=== PATIENT | male | born 1990 | race Caucasian/White ===

== ENCOUNTER 2018-06-20 14:31 | Emergency (ER) | payer OTHER ==
[~2018-06-20] VITALS: Ht 177.8 cm; Wt 84.0 kg
[~2018-06-20 14:31] MED LIST: ALBU18HF INHALATION; ALBUTEROL INH; CARB15DR50 BOTH EARS; IPRA14.76
[2018-06-20 14:38] VITALS: BP 168/57; PULSE 96; RESP 16; Ht 177.8 cm; Wt 84.0 kg
[2018-06-20] MEDS ORDERED: IPRATROPIUM (NEB) 0.5 MG/2.5 ML AMP NEB STA (15:39)
[2018-06-20] MEDS ORDERED: DEXAMETHASONE (1 MG/ML PO SYG) PO STA (15:39)
[2018-06-20] MEDS ORDERED: ALBUTEROL 0.083% (NEB) 2.5 MG/3 ML AMP NEB STA (15:39)
--- NOTE | 2018-06-20 15:41 | ERD ---
ER Documentation Chief Complaint Chief Complaint pt bib self with c/o feeling sob "asthma for a few days " HPI 28-year-old male, with history of asthma, presents the emergency department, c omplaining of 3 days with worsening of cough and wheezing. He has been using albuterol inhaler every 4 hours with mild improvement of the symptoms. He denies fevers, no chills, no chest pain, refers mild shortness of breath on exertion. ROS All systems reviewed and are negative except as per history of present illness. Medications Home Meds Active Scripts Prednisone* (Prednisone*) 20 Mg Tab, 40 MG PO DAILY for 4 Days, TAB Prov:GLEN MELGAR MD 06/20/18 Albuterol Sulfate* (Proair HFA*) 8.5 Gm Hfa.aer.ad, 2 PUFF INH Q4 PRN for COUGH, #1 INHALER Prov:GLEN MELGAR MD 06/20/18 Carbamide Peroxide* (Debrox*) 6.5% - 15 Ml Drops, 10 DROP BOTH EARS BID for ear wax, #1 BOTTLE Prov:JUANA MADRIGAL DO 06/03/18 Albuterol Sulfate* (Ventolin HFA*) 18 Gm Hfa.aer.ad, 2 PUFF INHALATION Q4H PRN for SHORTNESS OF BREATH, #3 INHALER Prov:JUANA MADRIGAL DO 06/03/18 Reported Medications Albuterol/Ipratropium (Combivent) 14.7 Gm Inha 10/14/09 [Albuterol Inh] No Conflict Check 08/20/09 Allergies Allergies: Coded Allergies: No Known Allergies (Verified Allergy, Mild, 10/14/09) PMhx/Soc Medical and Surgical Hx: pt denies Surgical Hx History of Surgery: No Anesthesia Reaction: No Hx Neurological Disorder: No Hx Respiratory Disorders: Yes (ASTHMA) Hx Cardiac Disorders: No Hx Psychiatric Problems: No Hx Miscellaneous Medical Probl: No Hx Alcohol Use: Yes (SOCIAL) Hx Substance Use: No Hx Tobacco Use: Yes Smoking Status: Former smoker FmHx Family History: No diabetes, No coronary disease Physical Exam Vitals Vital Signs Date Temp Pulse Resp B/P (MAP) Pulse Ox O2 O2 Flow FiO2 Time Delivery Rate 06/20/18 98 Room Air 16:51 06/20/18 96 19 96 21 15:52 06/20/18 97.4 96 16 168/57 97 14:38 (94) Physical Exam Const: No acute distress Head: Atraumatic Eyes: Normal Conjunctiva ENT: Normal External Ears, Nose and Mouth. Neck: Full range of motion. No meningismus. Resp: Diffuse rhonchi with expiratory wheezing to auscultation bilaterally Cardio: Regular rate and rhythm, no murmurs Abd: Soft, non tender, non distended. Normal bowel sounds Skin: No petechiae or rashes Back: No midline or flank tenderness Ext: No cyanosis, or edema Neur: Awake and alert Psych: Normal Mood and Affect Results 24 hrs Current Medications Medications Dose Sig/Marilou Start Time Status Last (Trade) Ordered Route PRN Stop Time Admin Dose Reason Admin Albuterol 5 mg ONCE STAT 06/20/18 DC 06/20/18 (Proventil NEB 15:39 15:51 0.083% (Neb)) 06/20/18 15:47 Ipratropium 0.5 mg ONCE STAT 06/20/18 DC 06/20/18 [place] NEB 15:39 15:52 (Atrovent 06/20/18 15:47 0.02% (Neb)) 10 mg ONCE STAT 06/20/18 UNV Dexamethasone PO 15:39 (Decadron 06/20/18 15:40 Intensol Liquid) 10 mg NOW PO 06/20/18 DC 06/20/18 Dexamethasone 16:00 16:02 (Decadron) 06/20/18 16:01 Procedures/MDM At the time of discharge, vital signs stable, no respiratory distress. Differential diagnosis include but not limited to: Respiratory infection bacterial/viral/fungal. Asthma/COPD, pneumonitis, allergies, GERD. Less likely foreign body aspiration, cardiac related, aspiration pneumonia, malignancy. Physical examination and clinical presentation consistent most likely with acute asthma exacerbation. During the ED course the patient remained stable, received a nebulized augustin tment and steroids in the ED presenting overall improvement of the symptoms, no new complaints. Clinical impression discussed with the patient who agrees with management. The patient is stable to be treated outpatient and will be discharged home. Some side effects of prescribed medications (headache, rash, nausea, vomiting, diarrhea, drowsiness, habituation, bleeding, hypertension, interactions with other medications) were reviewed. The patient was instructed to follow up with the primary care provider in the next 48h. If symptoms persist, worsen or new symptoms develop, then patient should return to the ED immediately. Disclaimer: Inadvertent spelling and grammatical errors are likely due to EHR/dictation software use and do not reflect on the overall quality of patient care. Also, please note that the electronic time recorded on this note does not necessarily reflect the actual time of the patient encounter. Departure Diagnosis: Primary Impression: Asthma with acute exacerbation Condition: Stable Additional Instructions: Thank you very much for allowing us to participate in your care. Your health and safety is our top priority at [facility]. Call your primary care doctor TOMORROW for an appointment during the next 2-4 days and bring all the information and medications prescribed. Have prescriptions filled and follow precisely the directions on the label. If the symptoms get worse and your provider is unavailable, return to the Emergency Department immediately. GLEN MELGAR MD Jun 20, 2018 15:41
[2018-06-20] MEDS ORDERED: DEXAMETHASONE 4 MG TAB PO SCH (16:00)
[2018-06-20] MEDS ORDERED: PRED20TA PO (16:43)
[2018-06-20] MEDS ORDERED: ALBU8.5H8 INH (16:43)
== END 2018-06-20 16:52 | disposition home or self-care (01) ==
LOC: FTE 14:31
DX: J45.901 Unspecified asthma with (acute) exacerbation (principal); Z87.891 Personal history of nicotine dependence
CPT/HCPCS: 94664; Z7502; Z7610

== ENCOUNTER 2018-09-08 11:38 | Emergency (ER) | payer OTHER ==
[2018-06-20 14:38] VITALS: Wt 77.0 kg
[~2018-09-08] VITALS: Wt 77.0 kg
[~2018-09-08 11:38] MED LIST changes: +ALBU8.5H8 INH; +PRED20TA PO
[2018-09-08 11:52] VITALS: BP 154/64; PULSE 64; RESP 18
[2018-09-08] MEDS ORDERED: IPRATROPIUM (NEB) 0.5 MG/2.5 ML AMP NEB STA (12:18)
[2018-09-08] MEDS ORDERED: predniSONE 20 MG TAB PO STA (12:18)
[2018-09-08] MEDS ORDERED: ALBUTEROL 0.083% (NEB) 2.5 MG/3 ML AMP NEB STA (12:18)
--- NOTE | 2018-09-08 12:20 | ERD ---
ER Documentation Chief Complaint Chief Complaint REFILL OF ASTHMA MEDS HPI 28-year-old male, with history of asthma, controlled with albuterol MDI and albuterol nebulizer at home, presents to the emergency department, complaining of 1 week with upper respiratory symptoms including cough, congestion and intermittent wheezing. He is requesting a refill for his medications. He denies fever, no chills. ROS All systems reviewed and are negative except as per history of present illness. Medications Home Meds Active Scripts Prednisone* (Prednisone*) 20 Mg Tab, 40 MG PO DAILY for 4 Days, TAB Prov:GLEN MELGAR MD 09/08/18 Albuterol Sulfate* (Ventolin HFA*) 18 Gm Hfa.aer.ad, 2 PUFF INHALATION Q4H, #1 INHALER Prov:GLEN MELGAR MD 09/08/18 Albuterol Sulfate* (Albuterol Sulfate* Neb) 0.083%-3 Ml Neb, 2.5 MG NEB Q4 PRN for SHORTNESS OF BREATH, #30 EA Prov:GLEN MELGAR MD 09/08/18 Prednisone* (Prednisone*) 20 Mg Tab, 40 MG PO DAILY for 4 Days, TAB Prov:GLEN MELGAR MD 06/20/18 Albuterol Sulfate* (Proair HFA*) 8.5 Gm Hfa.aer.ad, 2 PUFF INH Q4 PRN for COUGH, #1 INHALER Prov:GLEN MELGAR MD 06/20/18 Carbamide Peroxide* (Debrox*) 6.5% - 15 Ml Drops, 10 DROP BOTH EARS BID for ear wax, #1 BOTTLE Prov:JUANA MADRIGAL DO 06/03/18 Albuterol Sulfate* (Ventolin HFA*) 18 Gm Hfa.aer.ad, 2 PUFF INHALATION Q4H PRN for SHORTNESS OF BREATH, #3 INHALER Prov:JUANA MADRIGAL DO 06/03/18 Reported Medications Albuterol/Ipratropium (Combivent) 14.7 Gm Inha 10/14/09 [Albuterol Inh] No Conflict Check 08/20/09 Allergies Allergies: Coded Allergies: No Known Allergies (Verified Allergy, Mild, 10/14/09) PMhx/Soc History of Surgery: No Anesthesia Reaction: No Hx Neurological Disorder: No Hx Respiratory Disorders: Yes (ASTHMA) Hx Cardiac Disorders: No Hx Psychiatric Problems: No Hx Miscellaneous Medical Probl: No Hx Alcohol Use: Yes (SOCIAL) Hx Substance Use: No Hx Tobacco Use: Yes FmHx Family History: No diabetes, No coronary disease Physical Exam Vitals Vital Signs Date Temp Pulse Resp B/P (MAP) Pulse Ox O2 O2 Flow FiO2 Time Delivery Rate 09/08/18 80 20 96 21 12:33 09/08/18 98.1 64 18 154/64 99 11:52 (94) Physical Exam Patient alert, oriented, mild respiratory distress with cough. HEAD: Normocephalic, atraumatic. EYES: PERRLA, EOMI, Sclera and conjunctiva appear normal. NOSE: clear rhinorrhea . EARS: Canals clear, tympanic membranes WNL. MOUTH: normal lips and tongue, no oral lesions. THROAT: Erythema of the oropharynx, no tonsillar exudates. NECK: Supple, No lymphadenopathy. Full ROM without pain or tenderness. HEART: RRR, no rubs, murmurs, clicks or gallops. LUNGS: Bilateral inspiratory and expiratory wheezing to auscultation. ABDOMEN: Soft, non-tender without masses or hepatosplenomegaly. EXTREMITIES: No edema bilaterally. BACK: Full ROM, no deformity, normal back exam NEURO: Cranial nerves grossly intact, no motor or sensory deficit SKIN: No rashes, no petechia Results 24 hrs Current Medications Medications Dose Sig/Marilou Start Time Status Last (Trade) Ordered Route PRN Stop Time Admin Dose Reason Admin Albuterol 5 mg ONCE STAT 09/08/18 DC 09/08/18 (Proventil NEB 12:18 09/08/18 12:29 0.083% (Neb)) 12:19 Ipratropium 0.5 mg ONCE STAT 09/08/18 DC 09/08/18 [place] NEB 12:18 09/08/18 12:29 (Atrovent 12:19 0.02% (Neb)) Prednisone 60 mg ONCE STAT 09/08/18 DC 09/08/18 (Prednisone) PO 12:18 09/08/18 12:29 12:19 Procedures/MDM At the time of discharge, vital signs stable, no respiratory distress. Differential diagnosis include but not limited to: Respiratory infection bacterial/viral/fungal. Asthma/COPD, pneumonitis, allergies, GERD. Less likely foreign body aspiration, cardiac related, aspiration pneumonia, malignancy. Physical examination and clinical presentation consistent most likely with acute asthma exacerbation. During the ED course the patient remained stable, received a nebulized treatment and steroids in the ED presenting overall improvement of the symptoms, no new complaints. Clinical impression discussed with the patient who agrees with management. The patient is stable to be treated outpatient and will be discharged home. Some side effects of prescribed medications (headache, rash, nausea, vomiting, diarrhea, drowsiness, habituation, bleeding, hypertension, interactions with other medications) were reviewed. The patient was instructed to follow up with the primary care provider in the next 48h. If symptoms persist, worsen or new symptoms develop, then patient should return to the ED immediately. Disclaimer: Inadvertent spelling and grammatical errors are likely due to EHR/dictation software use and do not reflect on the overall quality of patient care. Also, please note that the electronic time recorded on this note does not necessarily reflect the actual time of the patient encounter. Departure Diagnosis: Primary Impression: Asthma exacerbation Additional Impression: Encounter for medication refill Condition: Stable Additional Instructions: Thank you very much for allowing us to participate in your care. Your health and safety is our top priority at [facility]. The evaluation in the emergency department has been done to rule out an acute emergency, therefore, chronic conditions like malignancy or other diseases have not been evaluated; therefore, you need to follow up with a primary care provider in the next 48h. If symptoms persist, worsen or new symptoms develop, then patient should return to the ED immediately. Call your primary care doctor TOMORROW for an appointment during the next 2-4 days and bring all the information provided. Have prescriptions filled and follow precisely the directions on the label. If the symptoms get worse and your provider is unavailable, return to the Emergency Department immediately. GLEN MELGAR MD September 08, 2018 12:20
[2018-09-08] MEDS ORDERED: ALBU18HF INHALATION (12:49)
[2018-09-08] MEDS ORDERED: PRED20TA PO (12:49)
[2018-09-08] MEDS ORDERED: ALBU2.5V3 NEB (12:49)
== END 2018-09-08 13:17 | disposition home or self-care (01) ==
LOC: FTE 11:38
DX: J45.901 Unspecified asthma with (acute) exacerbation (principal); Z76.0 Encounter for issue of repeat prescription
CPT/HCPCS: 94664; J7512; Z7502; Z7610

== ENCOUNTER 2018-10-01 13:01 | Emergency (ER) | payer OTHER ==
[~2018-10-01] VITALS: Ht 180.3 cm; Wt 70.0 kg
[~2018-10-01 13:01] MED LIST changes: +ALBU2.5V3 NEB
[2018-10-01 13:13] VITALS: BP 137/65; PULSE 89; RESP 18; Ht 180.3 cm; Wt 70.0 kg
[2018-10-01] MEDS ORDERED: ALBU18HF INHALATION (14:56)
--- NOTE | 2018-10-01 15:33 | ERD ---
ER Documentation Chief Complaint Chief Complaint asthma exacerbation and sob X 2 DAYS HPI 28-year-old male presents for refill of his Ventolin. Patient states that he has been out of it for last 2 days. Denies any current wheezing, shortness of breath, chest pain, respiratory distress, pallor, cyanosis. ROS All systems reviewed and are negative except as per history of present illness. Medications Home Meds Active Scripts Albuterol Sulfate* (Ventolin HFA*) 18 Gm Hfa.aer.ad, 2 PUFF INHALATION Q4H, #1 INHALER Prov:SIABERNICEFELY 10/01/18 Prednisone* (Prednisone*) 20 Mg Tab, 40 MG PO DAILY for 4 Days, TAB Prov:GLEN MELGAR MD 09/08/18 Albuterol Sulfate* (Ventolin HFA*) 18 Gm Hfa.aer.ad, 2 PUFF INHALATION Q4H, #1 INHALER Prov:GLEN MELGAR MD 09/08/18 Albuterol Sulfate* (Albuterol Sulfate* Neb) 0.083%-3 Ml Neb, 2.5 MG NEB Q4 PRN for SHORTNESS OF BREATH, #30 EA Prov:GLEN MELGAR MD 09/08/18 Prednisone* (Prednisone*) 20 Mg Tab, 40 MG PO DAILY for 4 Days, TAB Prov:GLEN MELGAR MD 06/20/18 Albuterol Sulfate* (Proair HFA*) 8.5 Gm Hfa.aer.ad, 2 PUFF INH Q4 PRN for COUGH, #1 INHALER Prov:GLEN MELGAR MD 06/20/18 Carbamide Peroxide* (Debrox*) 6.5% - 15 Ml Drops, 10 DROP BOTH EARS BID for ear wax, #1 BOTTLE Prov:JUANA MADRIGAL DO 06/03/18 Albuterol Sulfate* (Ventolin HFA*) 18 Gm Hfa.aer.ad, 2 PUFF INHALATION Q4H PRN for SHORTNESS OF BREATH, #3 INHALER Prov:JUANA MADRIGAL DO 06/03/18 Reported Medications Albuterol/Ipratropium (Combivent) 14.7 Gm Inha 10/14/09 [Albuterol Inh] No Conflict Check 08/20/09 Allergies Allergies: Coded Allergies: No Known Allergies (Verified Allergy, Mild, 10/14/09) PMhx/Soc History of Surgery: No Anesthesia Reaction: No Hx Neurological Disorder: No Hx Respiratory Disorders: Yes (ASTHMA) Hx Cardiac Disorders: No Hx Psychiatric Problems: No Hx Miscellaneous Medical Probl: No Hx Alcohol Use: Yes (SOCIAL) Hx Substance Use: No Hx Tobacco Use: Yes Physical Exam Vitals Vital Signs Date Temp Pulse Resp B/P (MAP) Pulse Ox O2 O2 Flow FiO2 Time Delivery Rate 10/01/18 98.7 89 18 137/65 97 13:13 (89) Physical Exam Const: No acute distress Head: Atraumatic Eyes: Normal Conjunctiva ENT: Normal External Ears, Nose and Mouth. Neck: Full range of motion. No meningismus. Resp: Clear to auscultation bilaterally. No pallor or cyanosis noted. Cardio: Regular rate and rhythm, no murmurs Abd: Soft, non tender, non distended. Normal bowel sounds Skin: No petechiae or rashes Back: No midline or flank tenderness Ext: No cyanosis, or edema Neur: Awake and alert Psych: Normal Mood and Affect Procedures/MDM MDM: Patient's Ventolin was refilled. I have low suspicion for asthma attack, pneumothorax, respiratory distress, or any other emergent condition. Patient discharged with strict ER precautions. Patient advised to follow up with PMD. All questions answered at discharge. Departure Diagnosis: Primary Impression: Asthma Asthma severity: unspecified severity Asthma persistence: unspecified Asthma complication type: unspecified Qualified Codes: J45.909 - Unspecified asthma, uncomplicated Condition: Stable Patient Instructions: Asthma Referrals: [facility] YOU HAVE RECEIVED A MEDICAL SCREENING EXAM AND THE RESULTS INDICATE THAT YOU DO NOT HAVE A CONDITION THAT REQUIRES URGENT TREATMENT IN THE EMERGENCY DEPARTMENT. FURTHER EVALUATION AND TREATMENT OF YOUR CONDITION CAN WAIT UNTIL YOU ARE SEEN IN YOUR DOCTORS OFFICE WITHIN THE NEXT 1-2 DAYS. IT IS YOUR RESPONSIBILITY TO MAKE AN APPOINTMENT FOR FOLOW-UP CARE. IF YOU HAVE A PRIMARY DOCTOR --you should call your primary doctor and schedule an appointment IF YOU DO NOT HAVE A PRIMARY DOCTOR YOU CAN CALL OUR PHYSICIAN REFERRAL HOTLINE AT IF YOU CAN NOT AFFORD TO SEE A PHYSICIAN YOU CAN CHOSE FROM THE FOLLOWING [facility] [address]. [facility] [address] [facility]. [facility] [address] [facility] [address] [facility]. [facility] [address] [facility]. [facility] [address] Additional Instructions: FOLLOW UP WITH YOUR PRIMARY CARE PHYSICIAN TOMORROW.Return to this facility if you are not improving as expected. FELY VEGA October 01, 2018 15:33
== END 2018-10-01 15:40 | disposition home or self-care (01) ==
LOC: FTE 13:01
DX: J45.901 Unspecified asthma with (acute) exacerbation (principal); Z87.891 Personal history of nicotine dependence
CPT/HCPCS: 99283